=== PATIENT | female | born 1995 | race Caucasian/White ===

== ENCOUNTER 2017-02-08 06:49 | Emergency (ER) | payer OTHER ==
[~2017-02-08] VITALS: Ht 154.9 cm; Wt 69.1 kg
[2017-02-08 06:57] VITALS: Ht 154.9 cm; Wt 69.1 kg
[2017-02-08] MEDS ORDERED: ONDANSETRON INJ 2 MG/ML 2 ML VIAL IV STA (07:05)
[2017-02-08] MEDS ORDERED: KETOROLAC TROMETHAMINE 30 MG/ML VIAL IV STA (07:05)
[2017-02-08] MEDS ORDERED: SODIUM CHLORIDE 0.9% 1000ML 1,000 ML IV STA ×2 (07:05→08:59)
[2017-02-08] MEDS ORDERED: BCPILLS PO (07:38)
[2017-02-08] MEDS ORDERED: NORT50CA PO (07:38)
[2017-02-08] MEDS ORDERED: LISD40CA PO (07:38)
[2017-02-08] MEDS ORDERED: LEVO5TAB7 PO (07:38)
[2017-02-08 07:47] LABS: BASO % 0.2 %; BASO ABS # 0.03 K/uL (0-0.2); COMPLETE YES; EOS % 0.3 %; HEMATOCRIT 42.7 % (37-47); IG% 0.3 %; LYMPH ABS # 0.94 K/uL (1.2-3.4); MEAN CORPUSCULAR HEMOGLOBIN 29.7 pg (25-34); MEAN CORPUSCULAR HGB CONC 34.2 g/dl (32-36); MONO % 5.1 %; NEUT % 89.1 %; PLATELET COUNT 391 K/uL (130-400); RED BLOOD COUNT 4.91 M/uL (4.2-5.4); WHITE BLOOD COUNT 18.66 K/uL (4.8-10.8)
[2017-02-08] MEDS ORDERED: ACETAMINOPHEN 500 MG TAB PO STA (08:01)
[2017-02-08 08:03] LABS: CREATININE 0.82 mg/dl (0.60-1.20); POTASSIUM 3.4 mmol/L (3.5-5.1)
[2017-02-08] MEDS ORDERED: PROMETHAZINE HCL INJ 25 MG in SODIUM CHLORIDE 0.9% 50ML 50 ML IV STA (08:59)
[2017-02-08] MEDS ORDERED: PROMETHAZINE HCL INJ 25 MG/ML 1 ML VIAL ONE (09:04)
[2017-02-08] MEDS ORDERED: ONDA4TAB10 SL (09:12)
[2017-02-08 09:34] VITALS: TEMP 37.1
[2017-02-08 11:00] VITALS: BP 128/70; PULSE 98; O2SAT 98
--- NOTE | 2017-02-08 18:17 | EMERGENCY ROOM VISIT NOTE ---
History First contact with patient: 07:00 Chief Complaint: FLU LIKE SX Stated Complaint: THROAT,NOSE,ANTOINE,STOMACH,BODY ACHE History of Present Illness The patient is a 22 year old female who presents to the Emergency Room with complaints of myalgias, sore throat, headache, nausea, vomiting, diarrhea and fever. The patient reports that her symptoms started on Thursday morning. She has had diarrhea approximately every hour. She tried to drink some water this morning but could not keep it down. The patient denies any known sick contacts. She denies eating any unusual foods, and has had no recent foreign travel. The patient has not received the influenza immunization yet this year. She rates her overall discomfort a 10 out of 10. Review of Systems HEENT: Denies dizziness, visual problems, hearing loss, tinnitus. Denies difficulty swallowing or oral lesions. PULMONARY: Her port's mild nonproductive cough, denies shortness of breath, sputum production or hemoptysis. CARDIOVASCULAR: Denies chest pain, palpitations, dyspnea on exertion, orthopnea or peripheral edema. GASTROINTESTINAL: Denies diarrhea, constipation, nausea, vomiting, or abdominal pain. GENITOURINARY: Denies dysuria, frequency, urgency or nocturia. NEUROLOGIC: Denies history of epilepsy, CVA, TIA or chronic headaches. MUSCULOSKELETAL: Denies history of joint tenderness/swelling. SKIN: Denies rashes or lesions. PSYCHIATRIC: Denies history of depression or mental illness. ENDOCRINE: Denies history of diabetes or thyroid disorders. Past Medical/Surgical History Medical Problems: (1) No significant past medical history Surgical Problems: (1) No history of previous surgery Family History Unremarkable Social History Smoking Status: Never Smoker Alcohol Use: occasionally Marital Status: single Occupation Status: employed Current/Historical Medications Scheduled Control Pills ( Control Pills), 1 TAB PO DAILY Levocetirizine Dihydrochloride (Xyzal Allergy 24Hr), 5 MG PO DAILY Lisdexamfetamine Dimesylate (Vyvanse), 40 MG PO DAILY Nortriptyline (Pamelor), 50 MG PO HS Ondasetron Odt (Zofran Odt), 4 MG SL Q6H Physical Exam Vital Signs Date Time Temp Pulse Resp B/P (MAP) Pulse Ox O2 Delivery O2 Flow Rate FiO2 02/08/17 11:00 98 16 128/70 98 02/08/17 10:26 98 16 128/70 98 Room Air 02/08/17 09:34 37.1 02/08/17 09:12 93 16 115/70 98 Room Air 02/08/17 08:29 112 16 117/77 100 Room Air 02/08/17 07:50 105 16 126/80 100 Room Air 02/08/17 06:57 38.0 122 18 162/95 99 Room Air Physical Exam CONSTITUTIONAL: Healthy and well nourished. Alert and oriented X 3 with positive affect. Patient does not appear in any acute distress, nor does she appear acutely or toxic. HEENT: Normocephalic, atraumatic. Pupils equal, round and reactive. Ears and nares are clear. No scleral icterus or conjunctival injection. OROPHARYNX: Mucous members are dry. She has posterior pharyngeal erythema without tonsillar hypertrophy or exudates. NECK: Full active range of motion without discomfort. No nuchal rigidity. Negative Kernig's, negative Brudzinski sign. RESPIRATORY: Clear to auscultation bilaterally with no wheezing, crackles, rhonchi or stridor. CARDIOVASCULAR: Tachycardic with no murmurs, rubs or gallops. GASTROINTESTINAL: Bowel sounds present in all quadrants. Patient has minimal in general tenderness to palpation of the abdomen. No rigidity, guarding or rebound. Negative McBurney's point tenderness. Negative CVA tenderness. MUSCULOSKELETAL: Full range of motion of all joints without discomfort. INTEGUMENTARY: No rash or other significant dermatologic conditions noted. HEMATOLOGIC: No ecchymosis or petechiae. NEUROLOGIC: No focal neurologic deficits noted. Medical Decision & Procedures Laboratory Results 02/08/17 07:25 Red Blood Count 4.91, Mean Corpuscular Volume 87.0, Mean Corpuscular Hemoglobin 29.7, Mean Corpuscular Hemoglobin Concent 34.2, Mean Platelet Volume 9.0, Neutrophils (%) (Auto) 89.1, Lymphocytes (%) (Auto) 5.0, Monocytes (%) (Auto) 5.1, Eosinophils (%) (Auto) 0.3, Basophils (%) (Auto) 0.2, Neutrophils # (Auto) 16.63, Lymphocytes # (Auto) 0.94, Monocytes # (Auto) 0.95, Eosinophils # (Auto) 0.05, Basophils # (Auto) 0.03 02/08/17 07:25 Test 02/08/17 07:25 White Blood Count 18.66 K/uL (4.8-10.8) Red Blood Count 4.91 M/uL (4.2-5.4) Hemoglobin 14.6 g/dL (12.0-16.0) Hematocrit 42.7 % (37-47) Mean Corpuscular Volume 87.0 fL (80-100) Mean Corpuscular Hemoglobin 29.7 pg (25-34) Mean Corpuscular Hemoglobin Concent 34.2 g/dl (32-36) Platelet Count 391 K/uL (130-400) Mean Platelet Volume 9.0 fL (7.4-10.4) Neutrophils (%) (Auto) 89.1 % Lymphocytes (%) (Auto) 5.0 % Monocytes (%) (Auto) 5.1 % Eosinophils (%) (Auto) 0.3 % Basophils (%) (Auto) 0.2 % Neutrophils # (Auto) 16.63 K/uL (1.4-6.5) Lymphocytes # (Auto) 0.94 K/uL (1.2-3.4) Monocytes # (Auto) 0.95 K/uL (0.11-0.59) Eosinophils # (Auto) 0.05 K/uL (0-0.5) Basophils # (Auto) 0.03 K/uL (0-0.2) RDW Standard Deviation 39.6 fL (36.4-46.3) RDW Coefficient of Variation 12.4 % (11.5-14.5) Immature Granulocyte % (Auto) 0.3 % Immature Granulocyte # (Auto) 0.06 K/uL (0.00-0.02) Anion Gap 11.0 mmol/L (3-11) Est Creatinine Clear Calc Drug Dose 95.6 ml/min Estimated GFR () 117.7 Estimated GFR (Non- 101.6 BUN/Creatinine Ratio 9.0 (10-20) Calcium Level 9.0 mg/dl (8.5-10.1) Influenza Type A Antigen Neg for Influ A (NEG) Influenza Type B Antigen Neg for Influ B (NEG) The above labs were reviewed. White count is markedly elevated with left shift and bandemia. Remaining electrolytes, LFTs and lipase are grossly normal. Influenza screen is negative. Medications Administered Medications (Trade) Dose Ordered Sig/[facility] Route Start Time Stop Time Status Last Admin Dose Admin Ketorolac Tromethamine (Toradol Inj) 30 mg NOW STAT IV 02/08/17 07:05 02/08/17 07:07 DC 02/08/17 07:22 30 MG Ondansetron HCl (Zofran Inj) 4 mg NOW STAT IV 02/08/17 07:05 02/08/17 07:07 DC 02/08/17 07:22 4 MG Sodium Chloride 1,000 ml @ 999 mls/hr Q1H1M STAT IV 02/08/17 07:05 02/08/17 08:05 DC 02/08/17 07:22 999 MLS/HR Acetaminophen (Tylenol Tab) 1,000 mg NOW STAT PO 02/08/17 08:01 02/08/17 08:02 DC 02/08/17 08:13 1,000 MG Sodium Chloride 1,000 ml @ 999 mls/hr Q1H1M STAT IV 02/08/17 08:59 02/08/17 09:59 DC 02/08/17 09:10 999 MLS/HR Promethazine HCl (Phenergan Inj) 25 mg STK-MED ONCE .ROUTE 02/08/17 09:04 02/08/17 09:05 DC 02/08/17 09:09 25 MG Procedure 1. IV hydration: The patient received a a total of 2 L normal saline bolus 2. IV medications: The patient was initially administered Toradol 30 mg and Zofran 4 mg IVP. She was subsequently administered an additional Phenergan 25 mg IVP for persistent nausea. ED Course Patient history and physical exam were performed. Nurse's notes were reviewed. Vital signs were reviewed. The patient is febrile with an oral temperature of 38C. She is tachycardic at 122 bpm. She is hypertensive, and O2 saturation is 99% on room air. IV access was established, and labs were drawn. The patient was hydrated with normal saline, and received IV medications as discussed in the previous Procedure section. Review of labs shows a markedly leukocytosis with left shift and bandemia. Remaining electrolytes, LFTs and lipase are normal. Influenza screen is negative. Upon reevaluation after labs were completed, the patient reported feeling better, but still had some mild nausea when trying to drink water. She also reported feeling continued thirst. She was hydrated with more saline, and was administered IV Phenergan. Repeat abdominal exams did not show any acute focal tenderness. The patient reported feeling well enough for discharge home. I did encourage the patient to follow-up closely with [facility] in the next 24-48 hours, given her white count. The patient was provided a prescription for Zofran ODT to prevent nausea. She was given instructions on a clear liquid diet for the next few days, then slowly advance diet as tolerated. Tylenol as needed for pain/fever. She was instructed to return to the emergency department for any worsening symptoms, especially with any developing focal abdominal discomfort. The patient was happy with plan of care, and voiced understanding of all discharge instructions. Medical Decision Medication Reconcilliation Current Medication List: was personally reviewed by me Blood Pressure Screening Patient's blood pressure: Normal blood pressure Impression Primary Impression: Febrile respiratory illness Additional Impression: Nausea, vomiting and diarrhea Departure Information Prescriptions Ondasetron Odt (ZOFRAN ODT) 4 Mg Tab 4 MG SL Q6H for Nausea, #10 TAB Prov: Reynaldo Mello PA 02/08/17 Referrals No Doctor, Assigned (PCP) Patient Instructions My [facility] Problem Qualifiers
== END 2017-02-08 11:00 | disposition home or self-care (01) ==
LOC: C.EDB 06:51
DX: R50.9 Fever, unspecified (principal); M79.1 Myalgia; J02.9 Acute pharyngitis, unspecified; R51 Headache; R11.2 Nausea with vomiting, unspecified; R19.7 Diarrhea, unspecified; Z79.3 Long term (current) use of hormonal contraceptives; Z79.899 Other long term (current) drug therapy